=== PATIENT | male | born 1990 | race Caucasian/White ===

== ENCOUNTER 2017-05-05 11:09 | Emergency (ER) | payer SELFPAY ==
[~2017-05-05] VITALS: Ht 188 cm; Wt 125.0 kg
[2017-05-05] MEDS ORDERED: [UNRECOGNIZED DRUG - CODE] IM (11:21)
[2017-05-05] MEDS ORDERED: APIX5TAB PO (11:21)
[2017-05-05] MEDS ORDERED: ELQUIS (11:21)
[2017-05-05 12:00] LABS: BASOPHILS % 3.2 % (0.0-2.0); HEMATOCRIT. 42.7 % (42.0-52.0); HEMOGLOBIN. 14.5 g/dL (14.0-18.0); LYMPHOCYTES % 38.7 % (20.0-50.0); MEAN CORPUSCULAR HEMOGLOBIN 28.6 pg (28.0-32.0); MEAN CORPUSCULAR VOLUME 84.3 fL (80.0-94.0); MEAN PLATELET VOLUME 9.6 fl (7.4-10.4); MONOCYTES % 13.3 % (2.0-8.0); NEUTROPHILS % 41.8 % (40.0-76.0); PLATELET 225 x1000/uL (130-400); RED BLOOD CELL COUNT 5.07 mill/uL (4.7-6.1); RED CELL DISTRIBUTION WIDTH 14.1 % (11.6-14.6)
[2017-05-05 12:08] LABS: D-DIMER < 0.19 mg/L FEU (<0.50); INR 1.1; PARTIAL THROMBOPLASTIN TIME 27.8 sec (23.4-31.0); PROTHROMBIN TIME 11.3 sec (9.4-11.6)
[2017-05-05 12:14] LABS: CARBON DIOXIDE 26 mEq/L (21-32); CHLORIDE 107 mEq/L (98-107)
[2017-05-05 13:21] VITALS: BP 126/71
== END 2017-05-05 13:22 | disposition home or self-care (01) ==
LOC: ER 11:45
DX: R25.2 Cramp and spasm (principal); Z91.013 Allergy to seafood; Z79.01 Long term (current) use of anticoagulants
CPT/HCPCS: 36415; 80048; 85025; 85379; 85610; 85730; 93970; 99285; Z7610

== ENCOUNTER → 2024-04-08 | Outpatient (CLI) | payer SELFPAY ==
[~2024-04-08] MED LIST: APIX5TAB PO; ELQUIS; [UNRECOGNIZED DRUG - CODE] IM
== END | disposition home or self-care (01) ==
LOC: RAD 15:43
PROVIDERS: ATTEND Internal Medicine Critical Care Medicine
DX: I82.403 Acute embolism and thrombosis of unspecified deep veins of lower extremity, bilateral (principal)
CPT/HCPCS: 93970